=== PATIENT | male | born 1990 | race Two or more races ===

== ENCOUNTER 2019-03-31 19:07 | Emergency (ER) | payer MEDICAID ==
[~2019-03-31] VITALS: Ht 172.7 cm; Wt 76.2 kg
[2019-03-31 19:16] VITALS: BP_SYST 117
--- NOTE | 2019-03-31 19:27 | NUR ---
Patient to ER H1 to gown for evaluation. Side rails up.
--- NOTE | 2019-03-31 19:41 | NUR ---
Patient moved to ER bed 8 to gown for evaluation. Side rails up. Report given to GRAY Freeman.
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
--- NOTE | 2019-03-31 21:08 | NUR ---
VSS no s/s of acute distress. Resting on gurney rails up
--- NOTE | 2019-03-31 21:34 | NUR ---
Pt taken to Radiology in stable condition
--- NOTE | 2019-03-31 22:00 | NUR ---
Pt back from Radiology, well tolerated
[2019-03-31] MEDS ORDERED: HYDROcodone/ACETAMIN 5-325 MG TAB (NORCO/ VICODIN) PO ONE (22:45)
--- NOTE | 2019-03-31 23:05 | NUR ---
Manoj HODGES, [facility] / .
--- NOTE | 2019-04-01 | NUR ---
VSS, no s/s of acute distress. Resting on gurney with rails up
[2019-04-01] MEDS ORDERED: MORPHINE 2 MG/ML INJ. SYRINGE IM ONE (00:45)
--- NOTE | 2019-04-01 00:52 | NUR ---
VSS no s/s of acute distress. Resting on gurney rails up
[2019-04-01 01:45] VITALS: BP_SYST 118
--- NOTE | 2019-04-01 01:45 | NUR ---
Patient given written and verbal discharge instructions and verbalizes understanding. ER MD discussed with patient the results and treatment provided. Patient in stable condition. ID arm band removed. Rx of [place] given. Patient educated on pain management and to follow up with PMD. Pain Scale 0/10 Opportunity for questions provided and answered. Medication side effect fact sheet provided.
== END 2019-04-01 01:45 | disposition home or self-care (01) ==
LOC: SED 19:07
DX: S02.2XXA Fracture of nasal bones, initial encounter for closed fracture (principal); S63.92XA Sprain of unspecified part of left wrist and hand, initial encounter; Y04.0XXA Assault by unarmed brawl or fight, initial encounter; Y93.89 Activity, other specified; Y92.89 Other specified places as the place of occurrence of the external cause; Y99.8 Other external cause status
CPT/HCPCS: 70450; 70486; 72100; 72125; 73100; 73120; 96372; 99284; J2270

== ENCOUNTER 2019-04-02 20:15 | Emergency (ER) | payer MEDICAID ==
[~2019-04-02] VITALS: Ht 172.7 cm; Wt 76.2 kg
[2019-04-02 20:40] VITALS: BP_SYST 129
--- NOTE | 2019-04-02 20:40 | NUR ---
Pt ambulatory to bed 8 for evaluation
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
--- NOTE | 2019-04-02 21:05 | NUR ---
Dr. Braden at bedside examining Pt.
[2019-04-02] MEDS ORDERED: KETOROLAC TROMETHAMINE 60 MG/2 ML VIAL IM ONE (21:15)
[2019-04-02 21:33] VITALS: BP_SYST 124
--- NOTE | 2019-04-02 21:33 | NUR ---
Patient given written and verbal discharge instructions and verbalizes understanding. ER MD discussed with patient the results and treatment provided. Patient in stable condition. ID arm band removed. IV catheter removed intact and dressing applied, no active bleeding. Patient educated on pain management and to follow up with PMD. Pain Scale 2/10. Opportunity for questions provided and answered. Medication side effect fact sheet provided.
== END 2019-04-02 21:35 | disposition home or self-care (01) ==
LOC: SED 20:15
DX: S63.92XD Sprain of unspecified part of left wrist and hand, subsequent encounter (principal); Y04.0XXD Assault by unarmed brawl or fight, subsequent encounter
CPT/HCPCS: 29125; 96372; 99283; J1885

== ENCOUNTER 2019-05-19 15:09 | Emergency (ER) | payer MEDICAID ==
[~2019-05-19] VITALS: Ht 172.7 cm; Wt 77.1 kg
[2019-05-19 15:10] VITALS: BP_SYST 137
[2019-05-19 15:36] VITALS: BP_SYST 137
== END 2019-05-19 15:36 | disposition home or self-care (01) ==
LOC: SED 15:09
DX: M25.531 Pain in right wrist (principal); M25.532 Pain in left wrist; Y04.0XXA Assault by unarmed brawl or fight, initial encounter; Y93.89 Activity, other specified; Y92.89 Other specified places as the place of occurrence of the external cause; Y99.8 Other external cause status
CPT/HCPCS: 99282